=== PATIENT | male | born 1965 | race Hispanic/Latino ===

== ENCOUNTER 2020-03-30 19:14 | Emergency (ER) | payer OTHER ==
[~2020-03-30] VITALS: Ht 172.7 cm; Wt 84.8 kg
[2020-03-30] MEDS ORDERED: NITROGLYCERIN 2% OINT 1 GM PKT TOP ONE (20:15)
[2020-03-30] MEDS ORDERED: ASPIRIN 81 MG CHEW TAB PO ONE (20:15)
--- NOTE | 2020-03-30 21:01 | Diagnostic Imaging Report ---
EXAMINATION: CXR 2 VIEW - HOPD INDICATION: ^CP ^[id number] ^2004 COMPARISON: None FINDINGS: PA and lateral views TUBES and LINES: None. LUNGS/PLEURA: Lungs are well inflated. There is no evidence of pneumonia or pulmonary edema.. There is no pleural effusion or pneumothorax. HEART AND MEDIASTINUM: The cardiomediastinal silhouette is unremarkable. BONES AND SOFT TISSUES: No acute osseous lesion. Soft tissues are unremarkable. UPPER ABDOMEN: No free air under the diaphragm. IMPRESSION: No acute thoracic abnormality. Signed by: Abdirizak Ballard MD on 03/30/2020 8:58 PM
--- NOTE | 2020-03-30 21:26 | Emergency Department Note ---
History of Present Illnes History of Present Illness Chief Complaint: left Chest Pain History of Present Illness This is a 54 year old male. was doing well prior to this. 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 Onset (how long ago): day(s) (2) Location: left cp Quality: dull Radiation: Reports non-radiation Severity: moderate Duration (how long): day(s) (2) Timing of current episode: constant Chronicity: new Context: Denies recent illness, Denies recent surgery, Denies recent immobilization, Denies recent travel, Denies trauma/injury, Denies new medications, Denies hx of DVT/PE, Denies non-compliance w/ medications Relieving factors: none Exacerbating factors: none Associated symptoms: Reports chest pain Treatments prior to arrival: none Past Medical/Family History Physician Review I have reviewed the patient's past medical and family history. Any updates have been documented here. Past Medical History Recent Fever: No Clinical Suspicion of Infectio: No New/Unexplained Change in Ment: No Past Medical History: Hypertension Other Medical History: HIGH CHOLESTEROL Past Surgical History: None Social History Smoking Cessation: Never Smoker Alcohol Use: None Any Illegal Drug Use: No TB Exposure/Symptoms: No Physically hurt or threatened: No Other Any Pre-Existing Lines (PICC,: No Is patient up to date on immun: No Last Flu: NONE Last Pneumovax: NA Review of Systems Review of Systems Constitutional: Reports no symptoms EENTM: Reports no symptoms Cardiovascular: Reports as per HPI, Reports chest pain Respiratory: Reports no symptoms Gastrointestinal: Reports no symptoms Genitourinary: Reports no symptoms Musculoskeletal: Reports no symptoms Integumentary: Reports no symptoms Neurological: Reports no symptoms Psychological: Reports no symptoms Endocrine: Reports no symptoms Hematological/Lymphatic: Reports no symptoms Review of other systems: All other systems negative Physical Exam Related Data Triage Vital Signs Vital Signs Date Time Temp Pulse Resp B/P (MAP) Pulse Ox O2 Delivery O2 Flow Rate FiO2 03/30/20 19:37 98.6 74 18 164/96 100 Vital signs reviewed: Yes Physical Exam CONSTITUTIONAL Constitutional: Present well-developed, Present well-nourished HENT HENT: Present normocephalic, Present atraumatic, Present oropharynx clear/moist, Present nose normal HENT L/R: Present left ext ear normal, Present right ext ear normal EYES Eyes: Reports PERRL, Reports conjunctivae normal NECK Neck: Present ROM normal, Present supple PULMONARY Pulmonary: Present effort normal, Present breath sounds normal CARDIOVASCULAR Cardiovascular: Present regular rhythm, Present heart sounds normal, Present capillary refill normal, Present normal rate GASTROINTESTINAL Abdominal: Present soft, Present nontender, Present bowel sounds normal GENITOURINARY Genitourinary: Present exam deferred SKIN Skin: Present warm, Present dry MUSCULOSKELETAL Musculoskeletal: Present ROM normal NEUROLOGICAL Neurological: Present alert, Present oriented x 3, Present no gross motor or sensory deficits PSYCHOLOGICAL Psychological: Present mood/affect normal, Present judgement normal Results Laboratory Lab results reviewed: Yes (cbc nl, cmp nl except bun 57, cr 9, nl d dimer, mym=705, cardiac enzymes nl except myoglobin =403) Imaging Imaging results reviewed: Yes Impressions [place] [id number] Patient Name: BRITNEY PHILLIP MR #: [id number] : 1965 Age/Sex: 54/M Req #: [id number] Adm Physician: Ordered by: ALBERT HOFFMAN Report #: [id number] Location: [facility] Room/Bed: Procedure: [id number] HOPD/CXR 2 VIEW - HOPD Exam Date: 03/30/20 Exam Time: 2004 REPORT STATUS: Signed EXAMINATION: CXR 2 VIEW - HOPD INDICATION: ^CP ^[id number] ^2004 COMPARISON: None FINDINGS: PA and lateral views TUBES and LINES: None. LUNGS/PLEURA: Lungs are well inflated. There is no evidence of pneumonia or pulmonary edema.. There is no pleural effusion or pneumothorax. HEART AND MEDIASTINUM: The cardiomediastinal silhouette is unremarkable. BONES AND SOFT TISSUES: No acute osseous lesion. Soft tissues are unremarkable. UPPER ABDOMEN: No free air under the diaphragm. IMPRESSION: No acute thoracic abnormality. Signed by: Abdirizak Calabrese MD on 03/30/2020 8:58 PM Dictated By: ABDIRIZAK CALABRESE MD 57 Transcribed By: JUAN on 03/30/202057 COPY TO: ALBERT HOFFMAN~ Procedures 12 Lead ECG Interpretation ECG Interpretation : ECG: ECG 1 Mold Tooler: Interpreted by ED physician Date: Mar 30, 2020 Time: 19:44 Rhythm: sinus rhythm Rate: normal BPM: 69 Conduction: complete RBBB ST segments normal: Yes T waves normal: Yes Clinical Impression: abnormal ECG Additional Comments left axis deviation Assessment & Plan Medical Decision Making MDM admit to hosp cp r/o acs. spoke to dr levine at 2149hrs and accepts transfer pt Reassessment Reassessment time: 21:00 Reassessment no cp s/p meds Assessment & Plan Final Impression: (1) Acute chest pain (2) Chest pain, rule out acute myocardial infarction Last Vital Signs Date Time Temp Pulse Resp B/P (MAP) Pulse Ox O2 Delivery O2 Flow Rate FiO2 03/30/20 19:37 98.6 74 18 164/96 100 Medications in the ED Aspirin 324 mg ONCE ONCE PO ; Start 03/30/20 at 20:15; Stop 03/30/20 at 20:16; Status UNV Nitroglycerin 1 gm ONCE ONCE TOP ; Start 03/30/20 at 20:15; Stop 03/30/20 at 20:16; Status DC ALBERT HOFFMAN Mar 30, 2020 21:26
[2020-03-30] MEDS ORDERED: ASPIRIN 81 MG CHEW TAB ONE (21:30)
[2020-03-30] MEDS ORDERED: NITROGLYCERIN 2% OINT 1 GM PKT ONE (21:31)
--- NOTE | 2020-03-30 21:33 | NUR ---
PT UP TO RESTROOM
[2020-03-30] MEDS ORDERED: FAMOTIDINE 20 MG/2 ML VIAL IV SCH (22:00)
[2020-03-30] MEDS ORDERED: MORPHINE SULFATE 2 MG/ML SYR 1ML IV PRN (22:00)
--- NOTE | 2020-03-30 22:32 | NUR ---
[facility] ETA 1.5HRS DUE TO MULT. CALLS BEFORE OUR TRANSFER. ALSO CALLED [facility] BUT NO TRUCK AVAILABLE. AOS JEROME HERNANDEZ
--- NOTE | 2020-03-30 23:55 | NUR ---
REPORT TO LACY ALLEN FOR ROOM 111
[2020-03-31] MEDS ORDERED: NITROGLYCERIN 2% OINT 1 GM PKT TOP SCH
--- NOTE | 2020-03-31 00:30 | NUR ---
DC'D IVSL WITHOUT DIFF. NO REDNESS/BLEEDING/SWELLING TO SITE. REMOVED NTG OINT FROM CHEST. PT PLANS TO SIGN OUT AMA NOT WILLING TO WAIT FOR EMS. HAS SPOKEN WITH EMS TWICE SINCE 2049. EMS IS SUPPOSED TO BE IN ROUTE FROM [facility] AT THIS TIME.
[2020-03-31 00:34] VITALS: BP 142/91
--- NOTE | 2020-03-31 00:34 | NUR ---
DAUGHTER SPEAKING WITH MD. REFUSING TO WAIT ANY LONGER FOR EMS TRANSPORT. PT SIGNED OUT AMA/ REFUSING EMS TRANSPORT. REGISTRATION EXPLAINED IF THEY LEFT VIA PRIVATE AUTO THAT THE ER PROCESS WOULD START ALL OVER AT [facility] AND HIS BED WOULD NOT BE HELD FOR HIM. PT SIGNED AMA AND LEFT WITH DAUGHTER.
== END 2020-03-31 00:34 | disposition left against medical advice (07) ==
LOC: FSED 19:14 → ERHOLD 22:08 → UNDOADMOB 22:08 → FSED 03-31 00:34
DX: R07.9 Chest pain, unspecified (principal); I10 Essential (primary) hypertension; E78.00 Pure hypercholesterolemia, unspecified; Z01.84 Encounter for antibody response examination
CPT/HCPCS: 71046; 80053; 82553; 83880; 84484; 85025; 85379; 85610; 87635; 96372; 99284